=== PATIENT | male | born 1970 | race Caucasian/White ===

== ENCOUNTER → 2020-02-06 14:51 | Outpatient (CLI) | payer OTHER, SELFPAY ==
--- NOTE | 2020-02-06 14:57 | DI.RAD.S_ITS ---
PROCEDURE: XR HIP W PEL IF DONE LT MIN 4V INDICATIONS: LOW BACK PAIN TECHNIQUE: AP pelvis with lateral view(s) of the bilateral hip(s). COMPARISON: None. FINDINGS: Bones: No fractures or dislocations. Pelvic ring appears intact. No suspicious bony lesions. Soft tissues: The visualized bowel gas pattern is normal. No suspicious soft tissue calcifications. IMPRESSION: Near severe bilateral hip joint osteoarthritis is present with subchondral cyst formation involving each femoral head. Also, beneath the articular surface of the right acetabulum several small subchondral cysts are present. Morphologic distortion of the humeral heads is present due to chronic remodeling in relationship to the degenerative changes. Dictated by: Jack Madrid M.D. on 02/06/2020 at 15:59 Approved by: Jack Madrid M.D. on 02/06/2020 at 16:00
--- NOTE | 2020-02-06 14:57 | DI.RAD.S_ITS ---
PROCEDURE: XR LUMBAR SPINE 2-3V INDICATIONS: LOW BACK PAIN- previous surgery TECHNIQUE: 2 views of the lumbar spine were acquired. COMPARISON: None. FINDINGS: Bones: 5 [id number] vertebrae are present. Degenerative disc disease is moderate to moderately severe at L4-5, without subluxation. Facet osteoarthritis is minimal at L3-4, [id number] at L4 and moderate at L5-S1. There is normal bony alignment. No vertebral body compression fractures. No suspicious bony lesions. Soft tissues: Overlying bowel gas pattern is normal. No suspicious soft tissue calcifications. IMPRESSION: The degenerative changes at the disc level is most pronounced at L4-5 and at the facet levels bilaterally is progressively greater from L3 through S1. There is likely significant spinal and foraminal stenosis at L3-4 and L5-S1. Dictated by: Jack Madrid M.D. on 02/06/2020 at 16:00 Approved by: Jack Madrid M.D. on 02/06/2020 at 16:01
== END ==
PROVIDERS: PCP Family Medicine; Referring Provider Family Medicine; Visit Provider Family Medicine
DX: M54.5 Low back pain (principal); M16.0 Bilateral primary osteoarthritis of hip; M47.816 Spondylosis without myelopathy or radiculopathy, lumbar region; M47.817 Spondylosis without myelopathy or radiculopathy, lumbosacral region
CPT/HCPCS: 72100; 73522

== ENCOUNTER → 2020-02-08 12:19 | Outpatient (CLI) | payer OTHER, SELFPAY ==
[2020-02-09 09:08] LABS: COVID19 Sendout Not Detected (Not Detected)
== END ==
PROVIDERS: PCP Family Medicine; Referring Provider Family Medicine; Visit Provider Family Medicine
DX: Z11.59 Encounter for screening for other viral diseases (principal)
CPT/HCPCS: 87635

== ENCOUNTER → 2020-06-04 11:25 | Outpatient (ROUT) | payer OTHER, SELFPAY ==
[2020-06-04 11:53] LABS: COVID19 -Nasal RAPID Negative (Negative)
== END ==
PROVIDERS: PCP Family Medicine; Visit Provider Family Medicine
DX: Z20.822 Contact with and (suspected) exposure to COVID-19 (principal)
CPT/HCPCS: 87635

== ENCOUNTER → 2020-07-10 07:51 | Outpatient (CLI) | payer OTHER, SELFPAY ==
[2020-07-10] MEDS: COVID-19 VACC #1, MRNA(MOD) 100 MCG/0.5 ML VIAL IM (08:02)
== END ==
PROVIDERS: PCP Family Medicine; Visit Provider Internal Medicine
DX: Z23 Encounter for immunization (principal)
CPT/HCPCS: 0011A; 91301

== ENCOUNTER → 2020-08-07 07:57 | Outpatient (CLI) | payer OTHER, SELFPAY ==
[2020-08-07] MEDS: COVID-19 VACC #2, MRNA(MOD) 100 MCG/0.5 ML VIAL IM (08:02)
== END ==
PROVIDERS: PCP Family Medicine; Visit Provider Internal Medicine
DX: Z23 Encounter for immunization (principal)
CPT/HCPCS: 0012A; 91301

== ENCOUNTER → 2022-10-19 18:37 | Outpatient (ROUT) | payer OTHER, SELFPAY | PROVIDERS: PCP Family Medicine; Visit Provider Family Medicine | DX: K12.0 Recurrent oral aphthae (principal) | CPT/HCPCS: 87252 ==

== ENCOUNTER → 2025-01-09 12:33 | Outpatient (ROUT) | payer OTHER, SELFPAY ==
[2025-01-09 12:54] LABS: Blood Urea Nitrogen 14 mg/dL (9-20); Calcium 9.2 mg/dL (8.4-10.2); Carbon Dioxide 23 mmol/L (22-32); Chloride 102 mmol/L (98-107); Estimated Glomerular Filt Rate > 60 mL/min (>60); Glucose 62 mg/dL (70-99); HEMOLYSIS 41 (0-50); Potassium 4.4 mmol/L (3.4-5.1); Sodium 137 mmol/L (137-145)
== END ==
PROVIDERS: PCP Family Medicine; Visit Provider Family Medicine
DX: R94.4 Abnormal results of kidney function studies (principal)
CPT/HCPCS: 80048

== ENCOUNTER → 2025-02-20 10:58 | Outpatient (CLI) | payer OTHER, SELFPAY ==
--- NOTE | 2025-02-20 11:02 | DI.US.S_ITS ---
PROCEDURE: US PERIPH VENOUS LOW EXTREM RT INDICATIONS: Right lower extremity pain. R/O BLOOD CLOT TECHNIQUE: Real-time imaging, as well as color and pulse Doppler interrogation, were performed of the lower extremity deep veins from the inguinal ligament to the popliteal fossa, with documentation of the visualized calf veins. COMPARISON: None. FINDINGS: The common femoral, femoral, popliteal, and the visualized calf veins are normally compressible, and free of intraluminal thrombus. Color and pulse Doppler demonstrate normal phasic intraluminal flow. There is normal augmentation response to distal compression maneuver. IMPRESSION: No findings of lower extremity deep venous thrombosis. Dictated by: Rabia Smith MD, PhD on 02/20/2025 at 11:40 Approved by: Rabia Smith MD, PhD on 02/20/2025 at 11:41
== END ==
PROVIDERS: PCP Family Medicine; Referring Provider Family Medicine; Visit Provider Family Medicine
DX: R60.0 Localized edema (principal)
CPT/HCPCS: 93971